=== PATIENT | female | born 1950 | race Caucasian/White ===

== ENCOUNTER → 2016-12-07 | Outpatient (CLI) | payer OTHER | LOC: ULTRA 02:24 | DX: R10.2 Pelvic and perineal pain (principal); Z90.710 Acquired absence of both cervix and uterus ==

== ENCOUNTER → 2017-08-20 | Outpatient (CLI) | payer OTHER | LOC: NUC 10:20 | DX: M85.89 Other specified disorders of bone density and structure, multiple sites (principal); E28.8 Other ovarian dysfunction; I95.9 Hypotension, unspecified; Z78.0 Asymptomatic menopausal state ==

== ENCOUNTER → 2018-01-18 | Outpatient (CLI) | payer OTHER | LOC: CAT 06:35 | DX: G43.809 Other migraine, not intractable, without status migrainosus (principal); M25.561 Pain in right knee; G45.9 Transient cerebral ischemic attack, unspecified; R47.81 Slurred speech ==

== ENCOUNTER → 2019-03-24 | Outpatient (CLI) | payer OTHER | LOC: CAT 09:18 | DX: Z13.6 Encounter for screening for cardiovascular disorders (principal); I25.10 Atherosclerotic heart disease of native coronary artery without angina pectoris; E78.00 Pure hypercholesterolemia, unspecified ==